=== PATIENT | female | born 1930 | race Caucasian/White ===

== ENCOUNTER 2016-04-12 20:07 | Inpatient (IN) | payer MEDICARE ==
[~2016-04-12 20:07] MED LIST: CEFTIN250 MG PO; MULTIVITAMINS1 EAC2 PO; PLAVIX75 MG PO; THERAGRAN TAB1 EA PO
[2016-04-12 20:52] LABS: RED BLOOD COUNT 3.43 M/UL (4.00-5.10); WHITE BLOOD COUNT 11.1 K/UL (4.5-11.0)
[2016-04-13] MEDS ORDERED: HYDROCODON-ACE1 EAC2 PO (03:29)
[2016-04-13] MEDS ORDERED: CRESTOR20 MG PO (03:29)
[2016-04-13] MEDS ORDERED: ASPIR 8181 MG PO (03:30)
[2016-04-13] MEDS ORDERED: NORVASC 5 MG TAB5 MG PO (03:30)
[2016-04-13] MEDS ORDERED: HYDRALAZINE HCL50 MG PO (03:30)
[2016-04-13] MEDS ORDERED: ISOSORBIDE MONO60 MG PO (03:30)
[2016-04-13] MEDS ORDERED: NITROSTAT 0.40.4 MG SL (03:31)
[2016-04-13] MEDS ORDERED: LEXAPRO5 MG PO (03:31)
[2016-04-13] MEDS ORDERED: ZESTRIL10 MG PO (03:32)
[2016-04-13] MEDS ORDERED: RANEXA1000 MG PO (03:32)
[2016-04-13] MEDS ORDERED: DULERA 200 MCG8.8 GM INH (03:34)
[2016-04-13 09:57] LABS: HEMOGLOBIN 10.6 gm/dl (12.3-15.3); RED BLOOD COUNT 3.32 M/UL (4.00-5.10)
[2016-04-13 09:58] LABS: WHITE BLOOD COUNT 16.3 K/UL (4.5-11.0)
--- NOTE | 2016-04-13 16:50 | NUR ---
PATIENT BREATHING IMPROVED, PULSE OX SATURATION WITH 02 2L VIA N/C 91%.
[2016-04-14 05:35] LABS: HEMOGLOBIN 10.5 gm/dl (12.3-15.3); RED BLOOD COUNT 3.24 M/UL (4.00-5.10); WHITE BLOOD COUNT 18.2 K/UL (4.5-11.0)
--- NOTE | 2016-04-14 10:49 | NUR ---
DISCUSSING PATIENT R/T SPEECH EVALUATION WHEN WE WERE CALLED IN TO PATIENT ROOM BY FAMILY MEMBER. PATIENT WAS JERKING APPROX 30 SECONDS FROM CHEST TO HER HEAD WITH NO INVOLVEMENT OF ANY OTHER PARTS OF THE BODY. CALLED IN [employer]- VITAL SIGNS 123/91 73 24 99% BLOOD SUGAR 104 TELEMETRY READING SINUS RHYTHM 72. PATIENT TRANSFERRED TO PCU AT 1051. EARLIER THIS MORNING PATIENT WAS ALERT AND AWAKE, PATEINT TALKING. ABLE TO TRANSFER FROM BED TO CHAIR WITH 2 ASSIST.
[2016-04-15 05:06] LABS: HEMOGLOBIN 9.2 gm/dl (12.3-15.3); WHITE BLOOD COUNT 14.1 K/UL (4.5-11.0)
[2016-04-15 05:08] LABS: RED BLOOD COUNT 2.89 M/UL (4.00-5.10)
[2016-04-16 05:12] LABS: HEMOGLOBIN 9.8 gm/dl (12.3-15.3); RED BLOOD COUNT 3.06 M/UL (4.00-5.10); WHITE BLOOD COUNT 11.7 K/UL (4.5-11.0)
[2016-04-17 05:21] LABS: HEMOGLOBIN 9.5 gm/dl (12.3-15.3); RED BLOOD COUNT 3.01 M/UL (4.00-5.10); WHITE BLOOD COUNT 12.1 K/UL (4.5-11.0)
[2016-04-17] MEDS ORDERED: ISOSORBIDE MONO30 MG PO (12:03)
[2016-04-17] MEDS ORDERED: LORTAB 5-325 M1 EACH PO (12:03)
[2016-04-17] MEDS ORDERED: RANEXA500 MG PO (12:09)
[2016-04-18 05:25] LABS: HEMOGLOBIN 9.8 gm/dl (12.3-15.3); RED BLOOD COUNT 3.06 M/UL (4.00-5.10); WHITE BLOOD COUNT 11.4 K/UL (4.5-11.0)
[2016-04-18 05:57] LABS: BUN/CREATININE RATIO 26 (0-10)
[2016-04-19 02:38] LABS: HEMOGLOBIN 10.5 gm/dl (12.3-15.3); RED BLOOD COUNT 3.31 M/UL (4.00-5.10); WHITE BLOOD COUNT 10.9 K/UL (4.5-11.0)
[2016-04-19 03:14] LABS: BUN/CREATININE RATIO 24 (0-10)
[2016-04-20 06:48] LABS: BUN/CREATININE RATIO 21 (0-10)
[2016-04-21 06:23] LABS: HEMOGLOBIN 10.7 gm/dl (12.3-15.3); RED BLOOD COUNT 3.37 M/UL (4.00-5.10)
[2016-04-21 06:24] LABS: WHITE BLOOD COUNT 15.1 K/UL (4.5-11.0)
--- NOTE | 2016-04-21 18:37 | NUR ---
STRAIGHT CATH PT PER MD ORDER FOR JAXON SUAZO
--- NOTE | 2016-04-22 05:30 | NUR ---
7PM SHIFT- PT IS VERY RAW/RED IN HER VAGINAL AREA ALL THE WAY TO HER BUTTOCKS AREA FROM MULTIPLE AMOUNTS OF WATERY DIARRHEA. PT HAS BEEN ON MULTIPLE ANTIBIOTICS FOR A PERIOD OF TIME AND THE STOOL SPECIMEN HAS BEEN SENT DOWN TO LAB FOR TESTING FOR C-DIFF. PT HAS CREAM APPLIED TO HER REDDENED AREAS. WILL CONTINUE TO MONITOR THE PATIENT'S SKIN.
[2016-04-22 06:00] LABS: HEMOGLOBIN 10.2 gm/dl (12.3-15.3); RED BLOOD COUNT 3.21 M/UL (4.00-5.10); WHITE BLOOD COUNT 17.4 K/UL (4.5-11.0)
[2016-04-24] MEDS ORDERED: LASIX20 MG PO (04:01)
[2016-04-24] MEDS ORDERED: MEGACE 400400 MG/10 PO (04:02)
[2016-04-24] MEDS ORDERED: PROTONIX40 MG PO (04:02)
[2016-04-24] MEDS ORDERED: ALDACTONE25 MG PO (04:03)
[2016-04-24] MEDS ORDERED: SYMBICORT 16010.2 GM INH (04:03)
[2016-04-24] MEDS ORDERED: AMIODARONE HCL200 MG PO (04:04)
[2016-04-24] MEDS ORDERED: COREG 3.125M3.125 MG PO (04:04)
[2016-04-24] MEDS ORDERED: MUCINEX600 MG PO (04:05)
[2016-04-24] MEDS ORDERED: MYCOSTATIN100000 UTS PO (04:05)
== END 2016-04-23 13:45 | DRG 280 ==
LOC: ER1 20:07 → ZEROF 23:46 → M/S 23:46 → CCU 04-13 09:04 → M/S 04-13 09:04 → CCU 04-14 10:55 → M/S 04-17 15:06
PROVIDERS: Emergency Medicine; Family Medicine; Internal Medicine; Internal Medicine Infectious Disease; Internal Medicine Pulmonary Disease; ADMIT Internal Medicine
PROC: 0B968ZX Drainage of Right Lower Lobe Bronchus, Via Natural or Artificial Opening Endoscopic, Diagnostic (ICD-10-PCS; 2016-04-16)
PROC: 5A09357 Assistance with Respiratory Ventilation, Less than 24 Consecutive Hours, Continuous Positive Airway Pressure (ICD-10-PCS; 2016-04-16)
PROC: 0B9B8ZX Drainage of Left Lower Lobe Bronchus, Via Natural or Artificial Opening Endoscopic, Diagnostic (ICD-10-PCS; principal; 2016-04-16 08:45)
DX: I13.0 Hypertensive heart and chronic kidney disease with heart failure and stage 1 through stage 4 chronic kidney disease, or unspecified chronic kidney disease (principal); I50.43 Acute on chronic combined systolic (congestive) and diastolic (congestive) heart failure; I21.4 Non-ST elevation (NSTEMI) myocardial infarction; J96.21 Acute and chronic respiratory failure with hypoxia; E44.0 Moderate protein-calorie malnutrition; I47.2 Ventricular tachycardia; J44.1 Chronic obstructive pulmonary disease with (acute) exacerbation; N17.9 Acute kidney failure, unspecified; E87.2 Acidosis; N39.0 Urinary tract infection, site not specified; I25.10 Atherosclerotic heart disease of native coronary artery without angina pectoris; N18.3 Chronic kidney disease, stage 3 (moderate); I25.5 Ischemic cardiomyopathy; E87.6 Hypokalemia; D64.9 Anemia, unspecified; I70.203 Unspecified atherosclerosis of native arteries of extremities, bilateral legs; E78.5 Hyperlipidemia, unspecified; I35.0 Nonrheumatic aortic (valve) stenosis; G30.1 Alzheimer's disease with late onset; F02.80 Dementia in other diseases classified elsewhere, unspecified severity, without behavioral disturbance, psychotic disturbance, mood disturbance, and anxiety; G25.3 Myoclonus; R19.7 Diarrhea, unspecified; R13.10 Dysphagia, unspecified; R91.8 Other nonspecific abnormal finding of lung field; H91.90 Unspecified hearing loss, unspecified ear; I25.2 Old myocardial infarction; Z95.1 Presence of aortocoronary bypass graft; Z95.5 Presence of coronary angioplasty implant and graft; Z95.820 Peripheral vascular angioplasty status with implants and grafts; Z87.891 Personal history of nicotine dependence; Z86.73 Personal history of transient ischemic attack (TIA), and cerebral infarction without residual deficits; Z66 Do not resuscitate; Z68.25 Body mass index [BMI] 25.0-25.9, adult; Z79.02 Long term (current) use of antithrombotics/antiplatelets; Z79.82 Long term (current) use of aspirin; Z79.51 Long term (current) use of inhaled steroids; Z79.891 Long term (current) use of opiate analgesic; Z79.899 Other long term (current) drug therapy; Z88.8 Allergy status to other drugs, medicaments and biological substances; Z82.49 Family history of ischemic heart disease and other diseases of the circulatory system; Z82.5 Family history of asthma and other chronic lower respiratory diseases; Z80.9 Family history of malignant neoplasm, unspecified; I22.2 Subsequent non-ST elevation (NSTEMI) myocardial infarction; J18.9 Pneumonia, unspecified organism; I50.33 Acute on chronic diastolic (congestive) heart failure; J44.9 Chronic obstructive pulmonary disease, unspecified; I10 Essential (primary) hypertension; D64.89 Other specified anemias; Y95 Nosocomial condition; I73.9 Peripheral vascular disease, unspecified; Z51.5 Encounter for palliative care; E88.09 Other disorders of plasma-protein metabolism, not elsewhere classified; F41.9 Anxiety disorder, unspecified; D72.828 Other elevated white blood cell count; T38.0X5A Adverse effect of glucocorticoids and synthetic analogues, initial encounter; I27.2 Other secondary pulmonary hypertension
CPT/HCPCS: ECHO; 36415; 36600; 51702; 70450; 71010; 71020; 74230; 80048; 80053; 80202; 81001; 82040; 82308; 82550; 82553; 82607; 82728; 82746; 82803; 83540; 83550; 83605; 83690; 83735; 83874; 83880; 84100; 84132; 84484; 85025; 85027; 85610; 85730; 87040; 87070; 87086; 87102; 87205; 89055; 92526; 92610; 92611-GN; 93005; 93306; 94640; 94660; 94664; 96365; 96366; 96367; 96374; 96375; 97110; 97116; 97530; 97535; 99285; G0378; J0456; J0696; J1335; J1644; J1650; J1940; J1956; J2060; J2250; J2270; J2405; J2543; J3370; J3480; J7030; J7040; J7050; J7070; P9047

== ENCOUNTER 2016-04-23 20:00 | Inpatient (IN) | payer MEDICARE ==
[~2016-04-23 20:00] MED LIST changes: +ASPIR 8181 MG PO; +CRESTOR20 MG PO; +DULERA 200 MCG8.8 GM INH; +HYDRALAZINE HCL50 MG PO; +HYDROCODON-ACE1 EAC2 PO; +ISOSORBIDE MONO30 MG PO; +ISOSORBIDE MONO60 MG PO; +LEXAPRO5 MG PO; +LORTAB 5-325 M1 EACH PO; +NITROSTAT 0.40.4 MG SL; +NORVASC 5 MG TAB5 MG PO; +RANEXA1000 MG PO; +RANEXA500 MG PO; +ZESTRIL10 MG PO
[2016-04-23 21:13] LABS: HEMOGLOBIN 11.6 gm/dl (12.3-15.3)
[2016-04-23 21:14] LABS: RED BLOOD COUNT 3.61 M/UL (4.00-5.10); WHITE BLOOD COUNT 30.7 K/UL (4.5-11.0)
[2016-04-24] MEDS ORDERED: LASIX20 MG PO (04:01)
[2016-04-24] MEDS ORDERED: PROTONIX40 MG PO (04:02)
[2016-04-24] MEDS ORDERED: MEGACE 400400 MG/10 PO (04:02)
[2016-04-24] MEDS ORDERED: ALDACTONE25 MG PO (04:03)
[2016-04-24] MEDS ORDERED: SYMBICORT 16010.2 GM INH (04:03)
[2016-04-24] MEDS ORDERED: COREG 3.125M3.125 MG PO (04:04)
[2016-04-24] MEDS ORDERED: AMIODARONE HCL200 MG PO (04:04)
[2016-04-24] MEDS ORDERED: MUCINEX600 MG PO (04:05)
[2016-04-24] MEDS ORDERED: MYCOSTATIN100000 UTS PO (04:05)
[2016-04-24 12:52] LABS: HEMOGLOBIN 9.3 gm/dl (12.3-15.3); RED BLOOD COUNT 2.96 M/UL (4.00-5.10); WHITE BLOOD COUNT 20.9 K/UL (4.5-11.0)
[2016-04-25 03:53] LABS: HEMOGLOBIN 9.4 gm/dl (12.3-15.3); RED BLOOD COUNT 2.97 M/UL (4.00-5.10); WHITE BLOOD COUNT 21.7 K/UL (4.5-11.0)
[2016-04-26] MEDS ORDERED: IPRAT-ALBUT 0.5-3 ML INH (10:14)
[2016-04-26] MEDS ORDERED: ATIVAN0.5 MG PO (10:30)
== END 2016-04-26 11:15 | disposition hospice, inpatient (51) | DRG 280 ==
LOC: ER1 20:00 → ZEROF 23:40 → CCU 23:40
PROVIDERS: Emergency Medicine; Family Medicine; Internal Medicine Pulmonary Disease; ADMIT Internal Medicine
DX: I22.2 Subsequent non-ST elevation (NSTEMI) myocardial infarction (principal); J96.21 Acute and chronic respiratory failure with hypoxia; J18.9 Pneumonia, unspecified organism; I50.33 Acute on chronic diastolic (congestive) heart failure; E46 Unspecified protein-calorie malnutrition; E44.0 Moderate protein-calorie malnutrition; I47.2 Ventricular tachycardia; E87.2 Acidosis; I21.4 Non-ST elevation (NSTEMI) myocardial infarction; J44.9 Chronic obstructive pulmonary disease, unspecified; Z79.899 Other long term (current) drug therapy; F03.90 Unspecified dementia, unspecified severity, without behavioral disturbance, psychotic disturbance, mood disturbance, and anxiety; Z68.22 Body mass index [BMI] 22.0-22.9, adult; I25.10 Atherosclerotic heart disease of native coronary artery without angina pectoris; I10 Essential (primary) hypertension; E78.5 Hyperlipidemia, unspecified; Z86.73 Personal history of transient ischemic attack (TIA), and cerebral infarction without residual deficits; I25.5 Ischemic cardiomyopathy; D64.89 Other specified anemias; Z95.1 Presence of aortocoronary bypass graft; Z79.82 Long term (current) use of aspirin; Z87.891 Personal history of nicotine dependence; Z66 Do not resuscitate; Z95.5 Presence of coronary angioplasty implant and graft; Y95 Nosocomial condition; I73.9 Peripheral vascular disease, unspecified; Z95.820 Peripheral vascular angioplasty status with implants and grafts; Z82.49 Family history of ischemic heart disease and other diseases of the circulatory system; I25.2 Old myocardial infarction; Z51.5 Encounter for palliative care; E88.09 Other disorders of plasma-protein metabolism, not elsewhere classified; I35.0 Nonrheumatic aortic (valve) stenosis; F41.9 Anxiety disorder, unspecified; D72.828 Other elevated white blood cell count; T38.0X5A Adverse effect of glucocorticoids and synthetic analogues, initial encounter; I27.2 Other secondary pulmonary hypertension
CPT/HCPCS: 36415; 36600; 51702; 71010; 80053; 80202; 81001; 82040; 82550; 82553; 82803; 83605; 83690; 83735; 83874; 83880; 84100; 84484; 85025; 85027; 85610; 85730; 87040; 87086; 93005; 94640; 94660; 94664; 96365; 96366; 96367; 96375; 99285; J1644; J1940; J1956; J2060; J2270; J2543; J3370; J3480; J7030; J7050; J7070; P9047